=== PATIENT | male | born 1995 | race Caucasian/White ===

== ENCOUNTER 2024-09-26 09:54 | Day surgery (SDC) | payer OTHER ==
[2024-09-25] MEDS: dexAMETHasone 10MG/1ML VIAL PRES.FREE PN ONE (14:20)
[~2024-09-26] VITALS: Ht 188 cm; Wt 97.7 kg
[~2024-09-26 09:54] MED LIST: CLAR10CA3 PO; GLYCOPYRROLATE INJ 0.2 MG/ML 2 ML VIAL As Ordered ONE; KETOROLAC 60MG 2ML VIAL As Ordered ONE; LIDOCAINE 2% 100MG/5ML SDV (FOR ANES.) As Ordered ONE; MIDAZOLAM INJ 2MG/2ML VIAL As Ordered ONE; ONDANSETRON 4MG 2ML VIAL As Ordered ONE; ROCURONIUM BROMIDE 50MG/5ML VIAL As Ordered ONE; SUGAMMADEX SODIUM 500 MG/5 ML VIAL (BRIDION) As Ordered ONE; fentaNYL 100 MCG/2 ML INJECTION As Ordered ONE; propofoL 200 MG/20 ML VIAL As Ordered ONE
[2024-09-26] MEDS: NS (Normal Saline) 0.9% 1,000 ML IV SCH (10:55)
[2024-09-26] MEDS ORDERED: dexAMETHasone 10MG/1ML VIAL PRES.FREE PN ONE (11:45)
[2024-09-26] MEDS: fentaNYL 100 MCG/2 ML INJECTION IV PRN (12:06)
[2024-09-26] MEDS: MIDAZOLAM INJ 2MG/2ML VIAL IV PRN (12:07)
[2024-09-26] MEDS: VANCOMYCIN 1000MG/20ML VIAL As Ordered ONE (13:15)
[2024-09-26] MEDS: TRANEXAMIC ACID 100 MG/ML 10ML VIAL As Ordered ONE (13:16)
[2024-09-26] MEDS ORDERED: ACETAMINOPHEN 1000MG/100ML IV BAG As Ordered ONE (13:20)
[2024-09-26] MEDS: LIDOCAINE W/EPINEPHRINE 1% 20ML VIAL As Ordered ONE (13:23)
[2024-09-26] MEDS: ceFAZolin SOD 2 GM in IV 1 EA IV ONE (13:50)
[2024-09-26] MEDS: EPINEPHrine 1MG/ML INJ 30ML MD-VIAL As Ordered ONE (14:00)
[2024-09-26] MEDS: TRANEXAMIC ACID 100 MG/ML 10ML VIAL IV ONE (14:05)
[2024-09-26] MEDS ORDERED: HYDROMORPHONE HCL 0.5 MG/ 0.5 ML SYRINGE IV PRN (16:15)
[2024-09-26] MEDS ORDERED: fentaNYL 100 MCG/2 ML INJECTION IV PRN (16:15)
[2024-09-26] MEDS ORDERED: oxyCODONE 5MG TAB PO PRN (16:15)
[2024-09-26] MEDS ORDERED: NS (Normal Saline) 0.9% 1,000 ML IV SCH (16:15)
[2024-09-26] MEDS: ONDANSETRON 4MG 2ML VIAL IV PRN (16:45)
[2024-09-26 17:24] VITALS: BP 131/71; TEMP 97.7; O2SAT 98
== END 2024-09-26 17:41 | disposition home or self-care (01) ==
LOC: M SDC 09:54
PROVIDERS: ATTEND Orthopaedic Surgery
DX: S43.432A Superior glenoid labrum lesion of left shoulder, initial encounter (principal); X50.0XXA Overexertion from strenuous movement or load, initial encounter; Y93.B9 Activity, other involving muscle strengthening exercises; Y92.9 Unspecified place or not applicable
CPT/HCPCS: 29806; C1713; J0131; J0171; J0690; J1100; J1596; J1885; J2250; J2405; J3010